=== PATIENT | male | born 1990 | race Caucasian/White ===

== ENCOUNTER 2017-02-12 01:23 | Emergency (ER) | payer OTHER ==
[~2017-02-12] VITALS: Ht 190.5 cm; Wt 86.2 kg
[~2017-02-12 01:23] MED LIST: ADVIL200 M1 PO; MOBIC7.5 MG PO; NORCO 5-325 TA1 EACH PO; PROMETHAZINE HC25 M1 PO; ZOFRAN ODT8 MG PO; ZOFRAN4 MG PO
== END 2017-02-12 02:46 | disposition home or self-care (01) ==
LOC: ED 01:23
DX: R51 Headache (principal); Z88.0 Allergy status to penicillin
CPT/HCPCS: 96374; 96375; 99282; J1200; J1885; J2765; J7030

== ENCOUNTER 2020-01-02 19:08 | Emergency (ER) | payer BC, OTHER ==
[~2020-01-02] VITALS: Ht 190.5 cm; Wt 88.5 kg
[~2020-01-02 19:08] MED LIST changes: +TRAMADOL HCL50 MG PO
[2020-01-02] MEDS ORDERED: TOPIRAMATE50 MG PO (19:31)
[2020-01-02] MEDS ORDERED: NORCO 5-325 TA1 EACH PO (21:12)
== END 2020-01-02 21:47 | disposition home or self-care (01) ==
LOC: ED 19:08
DX: S80.212A Abrasion, left knee, initial encounter (principal); Z23 Encounter for immunization; Z88.0 Allergy status to penicillin; Z88.8 Allergy status to other drugs, medicaments and biological substances; Z79.899 Other long term (current) drug therapy; V86.56XA Driver of dirt bike or motor/cross bike injured in nontraffic accident, initial encounter
CPT/HCPCS: 73560; 90471; 90715; 99283-25

== ENCOUNTER 2021-07-22 14:33 | Emergency (ER) | payer OTHER ==
[~2021-07-22 14:33] MED LIST changes: +TOPIRAMATE50 MG PO
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
[2021-07-22] MEDS ORDERED: HYDROCODON-ACE1 EA11 PO (17:07)
[2021-07-22] MEDS ORDERED: ONDANSETRON ODT8 MG PO (17:07)
== END 2021-07-22 19:37 | disposition home or self-care (01) ==
LOC: ED 14:33
DX: S42.022A Displaced fracture of shaft of left clavicle, initial encounter for closed fracture (principal); Z88.0 Allergy status to penicillin; Z88.8 Allergy status to other drugs, medicaments and biological substances; Z79.899 Other long term (current) drug therapy; V18.4XXA Pedal cycle driver injured in noncollision transport accident in traffic accident, initial encounter
CPT/HCPCS: 70450; 71045; 72125; 73030; 96374; 96375; 96376; 99284-25; J1170; J2405